=== PATIENT | female | born 1950 | race Native Hawaiian/Other Pacific Islander ===

== ENCOUNTER 2019-01-06 09:43 | Outpatient (CLI) | payer OTHER, MEDICARE ==
[2019-01-06 10:23] LABS: PLATELET COUNT 234 K/uL (152-353)
[2019-01-06 10:34] LABS: POTASSIUM 3.8 mmol/L (3.6-5.2)
== END 2019-01-06 20:27 | disposition home or self-care (01) ==
LOC: LABW 09:43
PROVIDERS: Physician Assistant
DX: Z00.00 Encounter for general adult medical examination without abnormal findings (principal); R42 Dizziness and giddiness; Z79.899 Other long term (current) drug therapy
CPT/HCPCS: 36415; 80053; 80061; 84439; 84443; 85027

== ENCOUNTER 2019-03-28 09:18 | Outpatient (CLI) | payer OTHER, MEDICARE | END 2019-03-28 19:39 | disposition home or self-care (01) | LOC: US 09:18 | DX: Z13.6 Encounter for screening for cardiovascular disorders (principal); Z84.89 Family history of other specified conditions ==

== ENCOUNTER 2019-04-18 10:13 | Outpatient (CLI) | payer OTHER, MEDICARE ==
[2019-04-18 10:33] LABS: PLATELET COUNT 290 K/uL (152-353)
[2019-04-18 10:46] LABS: POTASSIUM 4.1 mmol/L (3.6-5.2)
== END 2019-04-18 16:00 | disposition home or self-care (01) ==
LOC: LABW 10:13
PROVIDERS: Surgery Plastic and Reconstructive Surgery
DX: Z01.818 Encounter for other preprocedural examination (principal); D51.3 Other dietary vitamin B12 deficiency anemia; E55.9 Vitamin D deficiency, unspecified; Z86.39 Personal history of other endocrine, nutritional and metabolic disease; Z79.899 Other long term (current) drug therapy
CPT/HCPCS: 36415; 80048; 82306; 82607; 83735; 84630; 85027

== ENCOUNTER 2022-09-25 12:42 | Outpatient (CLI) | payer OTHER, MEDICARE | END 2022-09-25 19:35 | disposition home or self-care (01) | LOC: MAMMO 12:42 | PROVIDERS: ATTEND Obstetrics & Gynecology Obstetrics | DX: Z12.31 Encounter for screening mammogram for malignant neoplasm of breast (principal) ==